=== PATIENT | male | born 1980 | race Caucasian/White ===

== ENCOUNTER → 2016-05-18 | Outpatient (CLI) | payer OTHER, SELFPAY ==
[2016-05-18 13:47] LABS: ALBUMIN 4.1 GM/DL (3.2-5.2); ALBUMIN/GLOBULIN RATIO 1.17 (1.00-1.93); ALKALINE PHOSPHATASE 80 U/L (45-117); ALT/SGPT 92 U/L (12-78); ANION GAP 3 MEQ/L (8-16); AST/SGOT 32 U/L (15-37); BASO # 0.1 K/mm3 (0.0-0.2); BASO % 1.2 % (0.0-1.0); BILIRUBIN,TOTAL 0.6 MG/DL (0.2-1.0); BLOOD UREA NITROGEN 17 MG/DL (7-18); CALCIUM LEVEL 9.3 MG/DL (8.5-10.1); CARBON DIOXIDE LEVEL 32 MEQ/L (21-32); CHLORIDE LEVEL 103 MEQ/L (98-107); CHOLESTEROL LEVEL 251 MG/DL (<200); CREATININE FOR GFR 1.04 MG/DL (0.70-1.30); EOS # 0.2 K/mm3 (0.0-0.50); EOS % 4.5 % (0.0-3.0); GLOMERULAR FILTRATION RATE > 60.0 (>60); GLUCOSE, FASTING 78 MG/DL (70-105); LYMPH # 1.9 K/mm3 (1.5-4.5); LYMPH % 33.9 % (24.0-44.0); MEAN CORPUSCULAR HEMOGLOBIN 19.8 pg (27.0-33.0); MEAN CORPUSCULAR HGB CONC 30.1 g/dl (32.0-36.5); MEAN CORPUSCULAR VOLUME 65.8 fl (80.0-96.0); MONO # 0.5 K/mm3 (0.0-0.8); MONO % 8.4 % (0.0-5.0); NEUTROPHILS # 2.7 K/mm3 (1.8-7.7); NEUTROPHILS % 50.2 % (36.0-66.0); POTASSIUM SERUM 4.7 MEQ/L (3.5-5.1); RED CELL DISTRIBUTION WIDTH 15.7 % (11.5-14.5); SODIUM LEVEL 138 MEQ/L (136-145); TOTAL PROTEIN 7.6 GM/DL (6.4-8.2); TRIGLYCERIDES LEVEL 166 MG/DL (<150); WHITE BLOOD COUNT 5.4 K/mm3 (4.0-10.0)
== END ==
LOC: M WUC 08:57
PROVIDERS: ATTEND Physician Assistant Medical
DX: Z00.00 Encounter for general adult medical examination without abnormal findings (principal)

== ENCOUNTER → 2018-03-08 | Outpatient (CLI) | payer OTHER ==
--- NOTE | 2018-03-08 18:33 | REP ---
MRI LEFT SHOULDER: TECHNIQUE: Axial T2 fat sat, gradient echo, sagittal oblique T2 fat sat, coronal oblique T1, T2 fat sat. There is ill-defined high signal involving the supraspinatus tendon on T2 weighed images having the appearance of tendinopathy/tendonitis. There may be some mild fraying along the bursal surface of the tendon. Otherwise rotator cuff tendons appear intact. There are minor hypertrophic changes at the acromioclavicular joint. Acromion is type 1. The biceps tendon is within the bicipital groove. There is no Hill Sach's deformity. The deltoid muscle demonstrate no abnormal signal. The biceps labral complex is intact. There is no evidence of a labral tear. Mild subchondral cystic changes are seen in the superolateral humeral head. There is no bone marrow edema or occult fracture. There is a small amount of fluid in the subacromial, subdeltoid bursae which may represent an element of bursitis. IMPRESSION: Supraspinatus tendinopathy/tendonitis with possible bursal surface fraying, otherwise no evidence of rotator cuff tear. Mild fluid in the adjacent subacromial- subdeltoid bursae may indicate an aliment of bursitis. No evidence of a labral tear. Electronically Signed by Samir Blanco MD 03/08/2018 07:48 P
== END ==
LOC: M RAD 16:13
PROVIDERS: ATTEND Orthopaedic Surgery Sports Medicine
DX: M65.812 Other synovitis and tenosynovitis, left shoulder (principal)